=== PATIENT | female | born 1970 | race Caucasian/White ===

== ENCOUNTER 2017-09-26 01:43 | Emergency (ER) | payer OTHER ==
[~2017-09-26 01:43] MED LIST: ACE3 PO; IBU800 PO; PREN-67 PO
[2017-09-26] MEDS ORDERED: LEVO88TA43 PO (01:48)
[2017-09-26] MEDS ORDERED: LISI-362 PO (01:48)
--- NOTE | 2017-09-26 02:01 | ER Report ---
History and Physical Time Seen By MD: 01:58 Hx. of Stated Complaint: PT REPORTS THAT IN THE PAST COUPLE OF HOURS SHE HAS BEEN FEELING "OFF". REPORTS FEELING UNEASY. UNABLE TO GO TO SLEEP. STATES THAT HER BP IS UP. AT HOME SHE WAS 154/102. HPI/ROS CHIEF COMPLAINT: elevated blood pressure, not feeling well HISTORY OF PRESENT ILLNESS: This is a 47 year old female. She was trying to sleep tonight, but was unable to fall asleep. She felt a little dizzy and uneasy. Checked blood pressure and it was very high, 154/102. She had some palpitations. Had some tingling in neck and face area and in her feet. Denies weakness. No headache or vision changes. No weakness. No recent illnesses. She does not have any chest pain, but had some skipped beats. Normal bowel and bladder function. Take thyroid medications, recent labs were normal. Take Lisinopril 10mg once a day for blood pressure. Allergies: Coded Allergies: No Known Allergies (Verified Allergy, Mild, 09/26/17) Home Meds Reported Medications Lisinopril (LISINOPRIL) 10 Mg Tablet, 10 MG PO QDAY, TAB 09/26/17 Levothyroxine Sodium (SYNTHROID) 88 Mcg Tablet, 88 MCG PO QDAY 09/26/17 Discontinued Reported Medications Vits W-Ca,Fe,Fa(<1MG) () 1 Tab Tablet, 1 TAB PO DAILY, 0 Refills TAKE LONG YOU ARE OR ATLEAST 6 WEEKS 03/06/08 Acetaminophen/Codeine (Tylenol #3 300-30 Mg) 1 Ea Tab, 1 EA PO Q6H, #30 TAB 0 Refills 1-2 TABLETS YOU NEED IT FOR PAIN NO CLOSER THAN EVERY 6 HOURS 03/06/08 Ibuprofen (Motrin) 800 Mg Tab, 800 MG PO Q8H, #30 TAB 0 Refills TAKE WITH FOOD 03/06/08 Reviewed Nurses Notes: Yes Hx Substance Use Disorder: No Hx Alcohol Use: No Constitutional Vital Sign - Last 24 Hours 09/26/17 09/26/17 09/26/17 09/26/17 01:47 01:48 02:00 02:15 Temp 98.5 Pulse 109 102 90 Resp 12 18 25 B/P (MAP) 183/107 (132) 183/107 167/94 (118) 157/93 (114) Pulse Ox 100 99 O2 Delivery Room Air 09/26/17 09/26/17 09/26/17 09/26/17 02:30 02:46 03:00 03:15 Pulse 93 91 84 Resp 11 11 24 B/P (MAP) 150/96 (114) 135/92 (106) 143/85 (104) 121/81 (94) Pulse Ox 98 98 94 09/26/17 03:30 Pulse 86 Resp 21 B/P (MAP) 128/85 (99) Pulse Ox 95 Physical Exam General Appearance: The patient is alert. Mild anxiety, but otherwise no acute distress. Non-toxic in appearance. Eyes: Pupils are equal, round. Reactive to light. No pallor, injection or icterus. Extraocular movements are intact. ENT: Mucous membranes are moist. Normal oral mucosa. Posterior oropharynx is normal. Normal tympanic membranes and canals. Neck: Supple and non tender. No lymphadenopathy. Respiratory: Lungs are clear to auscultation. Cardiovascular: Tachycardia, but regular rhythm. No murmurs, gallops or rubs. Normal capillary refill. Gastrointestinal: Abdomen is soft and non tender. Nondistended. Normal active bowel sounds. Neurological: Alert and oriented x3. Cranial nerves II through XII show no acute deficits on my exam. No focal neurologic deficits in the extremities. Skin: Warm and dry. Musculoskeletal: Extremities are nontender. Full range of motion. No tenderness in palpation of the cervical, thoracic and lumbar spine. DIFFERENTIAL DIAGNOSIS: After history and physical exam, differential diagnosis was considered for elevated blood pressure not feeling well. Nonspecific symptoms. We'll check EKG, ell tutor, chest x-ray and CT scan. Blood pressure is elevated and we'll give him a low dose of labetalol to bring that down a little bit. Medical Decision Making Data Points Result Diagram: 09/26/17 0230 09/26/17 0230 Laboratory Hematology Test 09/26/17 02:30 Red Blood Count 4.76 M/uL (4.17-5.56) Mean Corpuscular Volume 79.5 fL (80.0-96.0) Mean Corpuscular Hemoglobin 26.5 pg (26.0-33.0) Mean Corpuscular Hemoglobin Concent 33.3 g/dL (32.0-36.0) Red Cell Distribution Width 15.6 % (11.5-14.5) Mean Platelet Volume 8.9 fL (7.2-11.1) Neutrophils (%) (Auto) 60.3 % (39.4-72.5) Lymphocytes (%) (Auto) 27.4 % (17.6-49.6) Monocytes (%) (Auto) 10.3 % (4.1-12.4) Eosinophils (%) (Auto) 1.3 % (0.4-6.7) Basophils (%) (Auto) 0.7 % (0.3-1.4) Nucleated RBC Relative Count (auto) 0.0 /100WBC Neutrophils # (Auto) 5.4 K/uL (2.0-7.4) Lymphocytes # (Auto) 2.5 K/uL (1.3-3.6) Monocytes # (Auto) 0.9 K/uL (0.3-1.0) Eosinophils # (Auto) 0.1 K/uL (0.0-0.5) Basophils # (Auto) 0.1 K/uL (0.0-0.1) Nucleated RBC Absolute Count (auto) 0.00 K/uL D-Dimer Quantitative (PE/DVT) 0.29 ug/ml (0-0.50) Sodium Level 141 mmol/L (137-145) Potassium Level 4.2 mmol/L (3.5-5.0) Chloride Level 103 mmol/L (98-107) Carbon Dioxide Level 26 mmol/L (22-31) Blood Urea Nitrogen 16 mg/dl (7-18) Creatinine 1.00 mg/dl (0.52-1.04) Glomerular Filtration Rate Calc 58.9 Random Glucose 105 mg/dl (75-110) Calcium Level 9.7 mg/dl (8.4-10.2) Total Bilirubin 0.3 mg/dl (0.2-1.3) Aspartate Amino Transf (AST/SGOT) 25 U/L (0-35) Alanine Aminotransferase (ALT/SGPT) 23 U/L (0-56) Alkaline Phosphatase 90 U/L (0-126) Troponin I < 0.012 ng/ml Total Protein 7.7 gm/dl (6.3-8.2) Albumin 4.2 g/dl (3.5-5.0) Chemistry Test 09/26/17 02:30 White Blood Count 9.0 k/uL (4.5-11.0) Red Blood Count 4.76 M/uL (4.17-5.56) Hemoglobin 12.6 g/dL (12.0-16.0) Hematocrit 37.8 % (34.0-47.0) Mean Corpuscular Volume 79.5 fL (80.0-96.0) Mean Corpuscular Hemoglobin 26.5 pg (26.0-33.0) Mean Corpuscular Hemoglobin Concent 33.3 g/dL (32.0-36.0) Red Cell Distribution Width 15.6 % (11.5-14.5) Platelet Count 301 K/uL (150-450) Mean Platelet Volume 8.9 fL (7.2-11.1) Neutrophils (%) (Auto) 60.3 % (39.4-72.5) Lymphocytes (%) (Auto) 27.4 % (17.6-49.6) Monocytes (%) (Auto) 10.3 % (4.1-12.4) Eosinophils (%) (Auto) 1.3 % (0.4-6.7) Basophils (%) (Auto) 0.7 % (0.3-1.4) Nucleated RBC Relative Count (auto) 0.0 /100WBC Neutrophils # (Auto) 5.4 K/uL (2.0-7.4) Lymphocytes # (Auto) 2.5 K/uL (1.3-3.6) Monocytes # (Auto) 0.9 K/uL (0.3-1.0) Eosinophils # (Auto) 0.1 K/uL (0.0-0.5) Basophils # (Auto) 0.1 K/uL (0.0-0.1) Nucleated RBC Absolute Count (auto) 0.00 K/uL D-Dimer Quantitative (PE/DVT) 0.29 ug/ml (0-0.50) Glomerular Filtration Rate Calc 58.9 Calcium Level 9.7 mg/dl (8.4-10.2) Total Bilirubin 0.3 mg/dl (0.2-1.3) Aspartate Amino Transf (AST/SGOT) 25 U/L (0-35) Alanine Aminotransferase (ALT/SGPT) 23 U/L (0-56) Alkaline Phosphatase 90 U/L (0-126) Troponin I < 0.012 ng/ml Total Protein 7.7 gm/dl (6.3-8.2) Albumin 4.2 g/dl (3.5-5.0) Coagulation Test 09/26/17 02:30 D-Dimer Quantitative (PE/DVT) 0.29 ug/ml EKG/Imaging EKG Interpretation 12 lead EKG: Rhythm: Sinus tachycardia, rate 103 [place]: normal QRS: normal ST segments: normal Monitor Interpretation: Sinus Tachycardia Imaging EXAMINATION: Head CT without intravenous contrast History: Elevated blood pressure TECHNIQUE: Contiguous axial images were obtained from the skull base to the vertex without intravenous contrast. One of the following dose optimization techniques was utilized in the performance of this exam: Automated exposure control; adjustment of the mA and/or kV according to the patient's size; or use of an iterative reconstruction technique. Specific details can be referenced in the facility's radiology CT exam operational policy. COMPARISON STUDIES: none FINDINGS: Visualized mastoid air cells / paranasal sinuses: Mild mucosal thickening sphenoid on the right. Calvarium and scalp: negative White matter: negative Dural venous sinuses / arterial structures: negative Ventricles / sulci / fissures: negative Masses / hemorrhage / midline shift: negative Extra-axial spaces: negative IMPRESSION: Normal head CT. No evidence of a mass, acute ischemia or hemorrhage. Report Dictated By: Bhavin Arthur MD at 09/26/2017 2:57 AM CHEST PA AND LAT History: High blood pressure Comparison 02/09/2010. FINDINGS: Lungs are clear, no effusion. No pneumothorax. Heart size within normal limits. Mediastinal contour within normal limits. IMPRESSION: No evidence of acute cardiopulmonary disease. Report Dictated By: Bhavin Arthur MD at 09/26/2017 2:56 AM ED Course/Re-evaluation Clinical Indication for ER IV: IV Access ED Course Labetalol 100mg oral dose given. Labs, EKG and Imaging (chest x-ray and CT head ) obtained, and normal results. Blood pressure better. Unsure the cause elevated blood pressure tonight, but improved now. Follow-up with Dr. Salazar recommended. Decision to Disposition Date: Sep 26, 2017 Decision to Disposition Time: 03:46 Depart Departure Latest Vital Signs Vital Signs Date Time Temp Pulse Resp B/P (MAP) Pulse Ox O2 Delivery O2 Flow Rate FiO2 09/26/17 03:30 86 21 128/85 (99) 95 09/26/17 01:48 98.5 Room Air Impression: Primary Impression: Elevated blood pressure reading Condition: Improved Disposition: HOME OR SELF-CARE Referrals: HARDIK SALAZAR DO (PCP) Patient Instructions: Hypertension (ED) Additional Instructions: No changes in blood pressure medication at this time. Labs, imaging and EKG were normal tonight. Please keep track of your blood pressure at home and make an appointment to discuss with Dr. Salazar. GAEL HARMON MD Sep 26, 2017 02:01
[2017-09-26] MEDS ORDERED: LABETALOL HCL 100 MG TAB PO ONE (02:15)
[2017-09-26 02:43] LABS: PLATELET COUNT, AUTOMATED 301 K/uL (150-450)
--- NOTE | 2017-09-26 02:44 | EKG ---
FACILITY: [facility] PATIENT NAME: COY VIEIRA : [id number] MR: [id number] V: [id number] EXAM DATE: ORDERING PHYSICIAN: GAEL HARMON TECHNOLOGIST: SENDY Test Reason : HTN Blood Pressure : / mmHG Vent. Rate : 103 BPM Atrial Rate : 103 BPM P-R Int : 112 ms QRS Dur : 086 ms QT Int : 344 ms P-R-T Axes : 054 084 072 degrees QTc Int : 450 ms Sinus tachycardia Decreased R wave progression anteriorly No acute appearing ST-T findings No previous ECGs available Confirmed by SHANE SY ([id number]) on 09/26/2017 6:14:55 AM Referred By: Confirmed By:SHANE SY
--- NOTE | 2017-09-26 03:21 | RADIOLOGY IMAGING REPORT ---
FACILITY: [facility] - [place] PATIENT NAME: Lucila Montero : 1970 MR: [id number] V: [id number] EXAM DATE: ORDERING PHYSICIAN: GAEL HARMON TECHNOLOGIST: [place] [facility] [place] Patient: Lucila Montero : 1970 Visit/Account:[id number] Date of Sevice: 09/26/2017 CHEST PA AND LAT History: High blood pressure Comparison 02/09/2010. FINDINGS: Lungs are clear, no effusion. No pneumothorax. Heart size within normal limits. Mediastinal contour w ithin normal limits. IMPRESSION: No evidence of acute cardiopulmonary disease. Report Dictated By: Bhavin Arthur MD at 09/26/2017 2:56 AM Report E-Signed By: Bhavin Arthur MD at 09/26/2017 2:57 AM WSN:[id number]
--- NOTE | 2017-09-26 03:21 | RADIOLOGY IMAGING REPORT ---
FACILITY: [facility] PATIENT NAME: Lucila Montero : 1970 MR: [id number] V: [id number] EXAM DATE: ORDERING PHYSICIAN: GAEL HARMON TECHNOLOGIST: Location: [facility] [place] Patient: Lucila Montero : 1970 Visit/Account:[id number] Date of Sevice: 09/26/2017 EXAMINATION: Head CT without intravenous contrast History: Elevated blood pressure TECHNIQUE: Contiguous axial images were obtained from the skull base to the vertex without intraven ous contrast. One of the following dose optimization techniques was utilized in the performance of th is exam: Automated exposure control; adjustment of the mA and/or kV according to the patient's size; or use of an iterative reconstruction technique. Specific details can be referenced in the facility 's radiology CT exam operational policy. COMPARISON STUDIES: none FINDINGS: Visualized mastoid air cells / paranasal sinuses: Mild mucosal thickening sphenoid on the right. Calvarium and scalp: negative White matter: negative Dural venous sinuses / arterial structures: negative Ventricles / sulci / fissures: negative Masses / hemorrhage / midline shift: negative Extra-axial spaces: negative IMPRESSION: Normal head CT. No evidence of a mass, acute ischemia or hemorrhage. Report Dictated By: Bhavin Arthur MD at 09/26/2017 2:57 AM Report E-Signed By: Bhavin Arthur MD at 09/26/2017 2:58 AM WSN:[id number]
[2017-09-26 03:30] VITALS: BP 128/85
== END 2017-09-26 03:55 | disposition home or self-care (01) ==
LOC: ER 01:45
DX: R03.0 Elevated blood-pressure reading, without diagnosis of hypertension (principal); R00.0 Tachycardia, unspecified
CPT/HCPCS: 70450; 71046; 82040; 82247; 82310; 82374; 82435; 82565; 82947; 84075; 84132; 84155; 84295; 84450; 84460; 84484; 84520; 85025; 85379; 93005; 99284

== ENCOUNTER 2018-01-16 23:50 | Emergency (ER) | payer OTHER ==
[~2018-01-16 23:50] MED LIST changes: +LEVO88TA43 PO; +LISI-362 PO
--- NOTE | 2018-01-16 23:53 | ER Report ---
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 Patient had sudden chest tightness and tingling in her neck and face. She's had multiple previous episodes usually late in the evening or after going to sleep at night. She was seen here last September 4 months ago with similar presentation. Had an extensive evaluation negative. Diagnostic blood work, negative EKG, negative head CT. She followed up with Dr. Kelby Urbano after several months. She increased her lisinopril from 10 mg to 20 mg. Patient reports to the episodes over the last several months which were quite brief. Patient denies stressors or anxiety. She's had no history of depression. Patient had an episode tonight that seemed to accelerate and get worse with worsening chest tightness. Patient was recently started on lisinopril 20 hydrochlorothiazide 12.5 mg she's had 2 doses. She checked her blood pressure this morning, which was good and again this evening. Both readings were good and acceptable in the 117/77, range REVIEW OF SYSTEMS: Respiratory: No cough, no dyspnea. Cardiovascular: As above Gastrointestinal: No vomiting, no abdominal pain. Musculoskeletal: No back pain. Allergies: Coded Allergies: No Known Allergies (Verified Allergy, Mild, 01/17/18) Home Meds Reported Medications Lisinopril/Hydrochlorothiazide (ZESTORETIC 20-12.5 MG TABLET) 1 Each Tablet, 1 EACH PO HS 01/17/18 Levothyroxine Sodium (SYNTHROID) 88 Mcg Tablet, 88 MCG PO QDAY 09/26/17 Discontinued Reported Medications Lisinopril (LISINOPRIL) 10 Mg Tablet, 10 MG PO QDAY, TAB 09/26/17 Reviewed Nurses Notes: Yes Old Medical Records Reviewed: Yes Hx Substance Use Disorder: No Hx Alcohol Use: No Constitutional Vital Sign - Last 24 Hours 01/17/18 00:01 Temp 98.3 Pulse 89 Resp 17 B/P (MAP) 155/99 Pulse Ox 98 O2 Delivery Room Air Physical Exam Vital signs stable, afebrile, pulse ox normal General Appearance: The patient is alert, has no immediate need for airway protection and no current signs of toxicity. No acute distress, vital signs stable. HEENT: Pupils equal and round no injection. oropharynx without redness or exudate, no edema, tonsillar hypertrophy Respiratory: Chest is non tender, lungs are clear to auscultation. Cardiac: regular rate and rhythm, no murmur Gastrointestinal: Abdomen is soft and non tender, no masses, bowel sounds normal. Musculoskeletal: Neck: Neck is supple and non tender. Extremities have full range of motion and are non tender. Skin: No rashes or lesions. DIFFERENTIAL DIAGNOSIS: After history and physical exam differential diagnosis was considered for chest pain including but not limited to myocardial ischemia, pericarditis pulmonary embolus, chest wall pain, pleural inflammation, anxiety, panic attack, medication reaction, and pulmonary infectious causes. Medical Decision Making EKG/Imaging EKG Interpretation 12 lead EK Rhythm: normal sinus rhythm with sinus arrhythmia [place]: Right word axis QRS: normal ST segments: normal, no evidence of ischemia or dysrhythmia, comparison to previous EKG 09/26/17 ED Course/Re-evaluation ED Course Patient was admitted to an examination room. H&P was done. The differential diagnosis patient with chest tightness and paresthesia. Patient measured her blood pressure which received a normal reading. Patient describes tightening sensation in her heart and chest. She has similar to this on previous occasions she had worsening symptoms again tonight. Patient denies any active stressors. Her symptoms seem similar to anxiety and panic attack. She had an extensive evaluation performed. Everything was unremarkable. She is advised to follow-up with her primary care physician for further evaluation. Decision to Disposition Date: Jan 17, 2018 Decision to Disposition Time: 00:44 Depart Departure Latest Vital Signs Vital Signs Date Time Temp Pulse Resp B/P (MAP) Pulse Ox O2 Delivery O2 Flow Rate FiO2 01/17/18 00:01 98.3 89 17 155/99 98 Room Air Impression: Primary Impression: Chest tightness Additional Impressions: Paresthesia History of hypertension Condition: Improved Disposition: HOME OR SELF-CARE Referrals: HARDIK SALAZAR DO (PCP) Patient Instructions: Hypertension (ED) Additional Instructions: Follow-up with your primary care physician for further evaluation and treatment of these episodes, consider Holter monitor for dysrhythmia, discussed possible anxiety attack Problem Qualifiers CHHAYA CARL DO Jan 16, 2018 23:53
[2018-01-17 00:01] VITALS: BP 155/99
[2018-01-17] MEDS ORDERED: LISI1TAB PO (00:01)
--- NOTE | 2018-01-17 00:37 | EKG ---
FACILITY: [facility] PATIENT NAME: COY VIEIRA : [id number] MR: [id number] V: [id number] EXAM DATE: ORDERING PHYSICIAN: CHHAYA CARL TECHNOLOGIST: HUAN Test Reason : ER Blood Pressure : / mmHG Vent. Rate : 083 BPM Atrial Rate : 093 BPM P-R Int : 116 ms QRS Dur : 086 ms QT Int : 374 ms P-R-T Axes : 030 092 047 degrees QTc Int : 439 ms Normal sinus rhythm with sinus arrhythmia No ST-T abnormalities When compared with ECG of 26-SEP-2017 01:52, No significant change was found Confirmed by PRASANNA PHILIP ([id number]) on 01/17/2018 6:21:00 AM Referred By: CAROLINA Confirmed By:PRASANNA PHILIP
== END 2018-01-17 01:01 | disposition home or self-care (01) ==
LOC: ER 23:55
DX: I10 Essential (primary) hypertension (principal); R07.89 Other chest pain; R20.2 Paresthesia of skin
CPT/HCPCS: 93005; 99283